=== PATIENT | female | born 1980 | race Caucasian/White ===

== ENCOUNTER 2021-06-05 15:50 | Emergency (ER) | payer OTHER ==
[2021-06-05 19:25] LABS: HEMOGLOBIN 12.8 gm/dl (12.3-15.3); RED BLOOD COUNT 4.4 M/UL (4.00-5.10); WHITE BLOOD COUNT 9.5 K/UL (4.5-11.0)
[2021-06-05 19:42] LABS: BUN/CREATININE RATIO 19 (0-10)
[2021-06-07 05:09] LABS: HBSAG SCREEN Negative (Negative); HEP A AB, IGM Negative (Negative); HEP B CORE AB, IGM Negative (Negative); HEP C VIRUS AB >11.0 (0.0-0.9)
== END 2021-06-05 21:37 | disposition home or self-care (01) ==
LOC: ER1 15:50
PROVIDERS: Physician Assistant
DX: R10.9 Unspecified abdominal pain (principal); Z90.710 Acquired absence of both cervix and uterus; F17.200 Nicotine dependence, unspecified, uncomplicated; Z88.5 Allergy status to narcotic agent
CPT/HCPCS: 80053; 80074; 82140; 83690; 85025; 85610; 99284